=== PATIENT | female | born 1990 | race Caucasian/White ===

== ENCOUNTER 2017-08-20 13:16 | Emergency (ER) | payer MEDICAID ==
[2017-08-20 13:29] VITALS: BP 121/72; PULSE 90; RESP 16; TEMP 98.4; O2SAT 100
--- NOTE | 2017-08-20 14:19 | ED PDOC ---
Lower Extremity Pain/Injury Time Seen by Provider: 08/20/17 13:51 Chief Complaint (Nursing): Lower Extremity Problem/Injury Chief Complaint (Provider): Lower Extremity Problem/Injury History Per: Patient History/Exam Limitations: no limitations Onset/Duration Of Symptoms: Days (x3) Current Symptoms Are (Timing): Still Present Additional Complaint(s): 27 year old female presents to the emergency department with a complaint of left leg pain associate with calf pain ongoing for 3 days. Denied any back pain , fall or trauma. Patient stated she did kickboxing last week and took Tylenol yesterday with minimal relief of pain. PMD: Miladis Seymour MD Past Medical History Reviewed: Historical Data, Nursing Documentation, Vital Signs Vital Signs: Last Vital Signs Temp 98.4 F 08/20/17 13:27 Pulse 90 08/20/17 13:27 Resp 16 08/20/17 13:27 BP 121/72 08/20/17 13:27 Pulse Ox 100 08/20/17 13:27 - Medical History PMH: No Chronic Diseases - Surgical History Surgical History: No Surg Hx - Family History Family History: States: Unknown Family Hx - Social History Current smoker - smoking cessation education provided: No Alcohol: None Drugs: Denies - Immunization History Hx Tetanus Toxoid Vaccination: No Hx Influenza Vaccination: No Hx Pneumococcal Vaccination: No - Home Medications Home Medications: Ambulatory Orders Medication Instructions Recorded Acetaminophen [Tylenol 325mg tab] 650 mg PO Q4 PRN #20 tab 08/25/15 Nitrofurantoin Macrocrystals 100 mg PO BID #14 cap 08/25/15 [Macrobid] Oseltamivir [Tamiflu] 75 mg PO BID #10 cap 08/25/15 Ondansetron ODT [Zofran ODT] 1 odt PO BID PRN #10 odt 09/28/16 - Allergies Allergies/Adverse Reactions: Allergies Allergy/AdvReac Type Severity Reaction Status Date / Time No Known Allergies Allergy Verified 08/25/15 19:27 Review of Systems ROS Statement: Except As Marked, All Systems Reviewed And Found Negative Musculoskeletal: Positive for: Leg Pain (left-sided with calf pain). Negative for: Back Pain, Other (trauma/fall) Physical Exam - Reviewed Nursing Documentation Reviewed: Yes Vital Signs Reviewed: Yes - Physical Exam Appears: Positive for: Well, Non-toxic, No Acute Distress Extremity: Positive for: Normal ROM (left leg with 5/5 strength bilaterally). Negative for: Tenderness (left leg), Pedal Edema (bilaterally), Calf Tenderness (left-sided), Deformity (left leg) Neurologic/Psych: Positive for: Alert, Oriented - ECG O2 Sat by Pulse Oximetry: 100 (RA) Pulse Ox Interpretation: Normal Medical Decision Making Medical Decision Making: Initial Impression: Left leg pain R/O DVT Initial Plan: * US duplex lower extremity * Tylenol 650mg PO Time: 1454 --US duplex LE FINDINGS: 2-D, color and duplex Doppler analysis of the lower extremity venous circulation using routine protocol from the common and superficial femoral through the popliteal veins. Venous compressibility: Normal. Flow and augmentation patterns: Normal. Visualized veins upper third of calf: Normal. Aldana cyst: None. Post tibial vein appears patent. IMPRESSION: No sonographic or Doppler evidence for DVT in left lower extremity. Scribe Attestation: Documented by Sandi Alicia, acting as a scribe for Osmany Calhoun PA-C. Provider Scribe Attestation: All medical record entries made by the Scribe were at my direction and personally dictated by me. I have reviewed the chart and agree that the record accurately reflects my personal performance of the history, physical exam, medical decision making, and the department course for this patient. I have also personally directed, reviewed, and agree with the discharge instructions and disposition. Disposition - Clinical Impression Clinical Impression: Leg pain, left Comment: follow up with PMD for leg pain Doctor Will See Patient In The: Office - Disposition Disposition: Routine/Home Condition: GOOD Forms: [facility] (Nauruan) - POA Present On Arrival: None
--- NOTE | 2017-08-20 14:56 | US ---
HISTORY: r/o DVT . PRIORS: None. FINDINGS: 2-D, color and duplex Doppler analysis of the lower extremity venous circulation using routine protocol from the common and superficial femoral through the popliteal veins. Venous compressibility: Normal. Flow and augmentation patterns: Normal. Visualized veins upper third of calf: Normal. Aldana cyst: None. Post tibial vein appears patent. IMPRESSION: No sonographic or Doppler evidence for DVT in left lower extremity.
== END 2017-08-20 15:40 | disposition home or self-care (01) ==
LOC: H.ER 13:16
DX: M79.605 Pain in left leg (principal)
CPT/HCPCS: 81025; 93971; 96372; 99282; J1885